=== PATIENT | male | born 1955 | race Caucasian/White ===

== ENCOUNTER 2017-04-23 00:20 | Emergency (ER) | payer SELFPAY ==
[2017-04-23 00:33] VITALS: TEMP 97.9
[2017-04-23] MEDS ORDERED: ASPIRIN 81 MG CHEWABLE TAB PO ONE (00:39)
--- NOTE | 2017-04-23 00:41 | CPEKG ---
Heart Rate: 57 RR Interval: 1053 P-R Interval: 184 QRSD Interval: 96 QT Interval: 440 QTC Interval: 429 P Stanley: 78 QRS Stanley: 75 T Wave Stanley: 41 EKG Severity - NORMAL ECG - EKG Impression: SINUS RHYTHM Electronically Signed By: Suzie Quevedo 23-Apr-2017 05:39:31
--- NOTE | 2017-04-23 01:09 | EDPHY ---
H & P Stated Complaint: l arm numb and chest ? constricted per pt Time Seen by Provider: 04/23/17 00:52 HPI/ROS: HPI The patient presents with left arm numbness and tingling which began about 3 hours prior to presentation. He initially felt this in his triceps region while he was taking a bath in the bath tub. He noticed that the numbness traveled to his 4th and 5th digits on the same hand. Later this evening, he noticed that his lateral left chest wall had a similar tingling sort of sensation. He denies any chest pain, weakness of his arms or legs, headache, shortness of breath, nausea, vomiting, dizziness, diaphoresis. He has no prior history of similar. He was using a hand standard and is left hand dominant yesterday.. REVIEW OF SYSTEMS Constitutional: No fever, no chills. Eyes: No discharge. ENT: No sore throat. Cardiovascular: No chest pain, no palpitations. Respiratory: No cough, no shortness of breath. Gastrointestinal: No abdominal pain, no vomiting. Genitourinary: No hematuria. Musculoskeletal: No back pain. Skin: No rashes. Neurological: No headache. PMHx: Healthy Soc Hx: Lives in [place], nonsmoker FHx: Father with CHF PHYSICAL General Appearance: Alert, no distress Eyes: Pupils equal and round no pallor or injection ENT, Mouth: Mucous membranes moist Respiratory: There are no retractions, lungs are clear to auscultation Cardiovascular: Regular rate and rhythm Gastrointestinal: Abdomen is soft and non-tender, no masses, bowel sounds normal Neurological: A&O, cranial nerves 2-12 intact, diminished sensation through inferior aspect of left arm into 4th and 5th digits which is mild, he has 5/5 strength in his upper and lower extremities and this is symmetric Skin: Warm and dry, no rashes Musculoskeletal: Neck is supple non tender Extremities: symmetrical, full range of motion Psychiatric: Patient is oriented X 3, there is no agitation Source: Patient Exam Limitations: No limitations - Personal History Current Tetanus/Diphtheria Vaccine: Yes Current Tetanus Diphtheria and Acellular Pertussis (TDAP): Yes Tetanus Vaccine Date: 03/2012 - Medical/Surgical History Hx Asthma: No Hx Chronic Respiratory Disease: No Hx Diabetes: No Hx Cardiac Disease: No Hx Renal Disease: No Hx Cirrhosis: No Hx Alcoholism: No Hx HIV/AIDS: No Hx Splenectomy or Spleen Trauma: No - Social History Smoking Status: Never smoked Constitutional: Initial Vital Signs Temperature (C) 36.6 C 04/23/17 00:29 Heart Rate 61 04/23/17 00:29 Respiratory Rate 18 04/23/17 00:29 Blood Pressure 108/68 04/23/17 00:29 O2 Sat (%) 95 04/23/17 00:29 O2 Delivery Mode Room Air Allergies/Adverse Reactions: No Known Allergies Allergy (Verified 03/30/12 15:19) Home Medications: Medication Instructions Recorded Miscellaneous Medical Supply [NO 1 ea MISC AD 03/30/12 HOME MEDS] Medical Decision Making - Diagnostics EKG Interpretation: EKG: Complete interpretation has been separately recorded in the [facility] archive. Summary impression: Normal sinus rhythm Imaging Results: Chest x-ray two view shows no cardiomegaly, no infiltrate, no effusion, interpreted by me, radiology interpretation is pending. Differential Diagnosis: [age] year old male who presents with 3 hours of left hand and arm numbness and tingling with mild left-sided lateral chest wall tingling. Differential diagnosis includes ACS, electrolyte disturbance, ulnar neuropathy, CVA. In the emergency department, patient was placed on the conche loader and unloader with no events on telemetry. His EKG, chest x-ray, basic labs including troponin were all within normal limits. His symptoms improved somewhat while he was here without any intervention. As I have offered him CT scan of his head to evaluate for possible CVA, however he declines as he is concerned about cost. I explained that we could miss a stroke if we do not do this. He accepts this risk. He recalls now that he had his arm dangling out of the bathtub and thinks he may have compressed his nerve, this is certainly possible. He would like to be discharged home and I will send him with instructions for follow-up with Neurology if his symptoms continue. I have also invited him to return to the emergency room at any time if you would like to pursue a CT scan. - Data Points Laboratory Results: Laboratory Results 04/23/17 00:39 04/23/17 00:39 04/23/17 04/23/17 00:39 00:39 WBC 5.46 10^3/uL 10^3/uL (3.80-9.50) RBC 4.76 10^6/uL 10^6/uL (4.40-6.38) Hgb 14.6 g/dL g/dL (13.7-17.5) Hct 41.7 % % (40.0-51.0) MCV 87.6 fL fL (81.5-99.8) MCH 30.7 pg pg (27.9-34.1) MCHC 35.0 g/dL g/dL (32.4-36.7) RDW 12.4 % % (11.5-15.2) Plt Count 235 10^3/uL 10^3/uL (150-400) MPV 8.5 fL L fL (8.7-11.7) Neut % (Auto) 45.4 % % (39.3-74.2) Lymph % (Auto) 37.9 % % (15.0-45.0) Dale % (Auto) 10.8 % % (4.5-13.0) Eos % (Auto) 3.5 % % (0.6-7.6) Baso % (Auto) 1.3 % % (0.3-1.7) Nucleat RBC Rel Count 0.0 % % (0.0-0.2) Absolute Neuts (auto) 2.48 10^3/uL 10^3/uL (1.70-6.50) Absolute Lymphs (auto) 2.07 10^3/uL 10^3/uL (1.00-3.00) Absolute Monos (auto) 0.59 10^3/uL 10^3/uL (0.30-0.80) Absolute Eos (auto) 0.19 10^3/uL 10^3/uL (0.03-0.40) Absolute Basos (auto) 0.07 10^3/uL 10^3/uL (0.02-0.10) Absolute Nucleated RBC 0.00 10^3/uL 10^3/uL (0-0.01) Immature Gran % 1.1 % % (0.0-1.1) Immature Gran # 0.06 10^3/uL 10^3/uL (0.00-0.10) Sodium 141 mEq/L mEq/L (134-144) Potassium 4.3 mEq/L mEq/L (3.5-5.2) Chloride 106 mEq/L mEq/L (97-110) Carbon Dioxide 23 mEq/l mEq/l (22-31) Anion Gap 12 mEq/L mEq/L (8-16) BUN 15 mg/dL mg/dL (7-23) Creatinine 1.1 mg/dL mg/dL (0.7-1.3) Estimated GFR > 60 Glucose 90 mg/dL mg/dL (70-100) Calcium 9.4 mg/dL mg/dL (8.5-10.4) Troponin I < 0.012 ng/mL ng/mL (0.000-0.034) Medications Given: Discontinued Medications Aspirin (Aspirin) 324 mg PO EDNOW ONE Stop: 04/23/17 00:40 Last Admin: 04/23/17 00:41 Dose: 324 mg Departure - Departure Disposition: Home, Routine, Self-Care Clinical Impression: Paresthesia of left arm Condition: Good Instructions: Paresthesia (ED) Additional Instructions: Your lab tests and other studies today revealed that you are not having a heart attack. The cause of the tingling sensation that you are having is not entirely clear. Because of this, I would like for you to follow up with a neurologist. I have given you the information for Dr. Lee. You should call to make an appointment. You should return to the emergency room if your worse in any way. Referrals: León Lee, DO [Medical Doctor] - As per Instructions
[2017-04-23 01:12] LABS: % IMMATURE GRANULYOCYTES 1.1 % (0.0-1.1); ABSOLUTE IMMATURE GRANULOCYTES 0.06 10^3/uL (0.00-0.10); ADD DIFF? NO; ADD MORPH? NO; ADD SCAN? NO; ATYPICAL LYMPHOCYTE FLAG 10 (0-99); FRAGMENT RBC FLAG 0 (0-99); HEMATOCRIT 41.7 % (40.0-51.0); HEMOGLOBIN 14.6 g/dL (13.7-17.5); LEFT SHIFT FLG 0 (0-99); LIPEMIA HEMOLYSIS FLAG 90 (0-99); MEAN CELL HEMOGLOBIN 30.7 pg (27.9-34.1); MEAN CELL VOLUME 87.6 fL (81.5-99.8); MEAN PLATELET VOLUME 8.5 fL (8.7-11.7); PLATELET CLUMPS FLAG 0 (0-99); PLATELET COUNT 235 10^3/uL (150-400); RED BLOOD CELL COUNT 4.76 10^6/uL (4.40-6.38); RED CELL DISTRIBUTION WIDTH 12.4 % (11.5-15.2)
[2017-04-23 01:16] LABS: ANION GAP 12 mEq/L (8-16); CALCIUM 9.4 mg/dL (8.5-10.4); CARBON DIOXIDE 23 mEq/l (22-31); CHLORIDE 106 mEq/L (97-110); CREATININE 1.1 mg/dL (0.7-1.3); GLOMERULAR FILTRATION RATE > 60; GLUCOSE 90 mg/dL (70-100); POTASSIUM 4.3 mEq/L (3.5-5.2); SODIUM 141 mEq/L (134-144)
[2017-04-23 01:27] LABS: TROPONIN I < 0.012 ng/mL (0.000-0.034)
[2017-04-23 02:20] VITALS: BP 116/66; PULSE 57; RESP 16; O2SAT 96
== END 2017-04-23 02:20 | disposition home or self-care (01) ==
DX: R20.2 Paresthesia of skin (principal)